=== PATIENT | female | born 1960 | race Two or more races ===

== ENCOUNTER 2018-05-02 16:34 | Inpatient (IN) | payer OTHER, MEDICAID | END 2018-05-05 18:20 | disposition home or self-care (01) | LOC: TELE 05-03 04:11 → ER 16:34 → TELE-WESTW 05-03 21:14 | PROC: 0W9G3ZZ Drainage of Peritoneal Cavity, Percutaneous Approach (ICD-10-PCS; principal; ~2018-05-02) | DX: R18.8 Other ascites (principal); E44.1 Mild protein-calorie malnutrition; K74.60 Unspecified cirrhosis of liver; E11.9 Type 2 diabetes mellitus without complications; I10 Essential (primary) hypertension ==

== ENCOUNTER 2018-06-22 11:12 | Inpatient (IN) | payer OTHER, MEDICAID | END 2018-06-24 14:35 | disposition home or self-care (01) | LOC: ER 11:12 → OVERFLOW 15:23 → CENTRAL 16:50 | DX: R18.8 Other ascites (principal); D61.818 Other pancytopenia; K74.60 Unspecified cirrhosis of liver ==

== ENCOUNTER 2018-08-14 08:37 | Day surgery (SDC) | payer OTHER, MEDICAID ==
[2018-08-10 14:35] LABS: Basophils # (auto) 0 uL; Lymphocytes # (auto) 0.7 uL; Monocytes # (auto) 0.3 uL; Neutrophils # (auto) 1.5 uL; Nucleated Red Blood Cells % 0.1 %; White Blood Cell 2.6 10^3/uL (4.4-10.8)
[2018-08-10 14:37] LABS: Eosinophils # (auto) 0.1 uL; Eosinophils % (auto) 5.3 % (0.0-7.0); Hematocrit 33.8 % (36.0-46.0); Lymphocytes % (auto) 25.3 % (10.0-50.0); Mean Corpuscular Hemoglobin 26.8 pg (28.0-32.0); Mean Corpuscular Hgb Conc. 32.5 g/dL (32.0-36.0); Mean Corpuscular Volume 82.4 fL (80.0-100.0); Monocytes % (auto) 11.7 % (0.0-12.0); Neutrophils % (auto) 56.7 % (37.0-80.0); Platelet Count (auto) 72 10^3/uL (140-450)
[2018-08-10 14:51] LABS: INR 1.17 (0.9-1.15); Partial Thromboplastin Time 27.4 sec (23.64-32.05)
[~2018-08-14] VITALS: Ht 160 cm; Wt 57.6 kg
[~2018-08-14 08:37] MED LIST: FURO1TAB33 PO; INSLANTI SC; INSLISPI SC; SPIR50TA5 PO
[2018-08-14] MEDS ORDERED: diphenhdrAMINE HCL 50 MG/1 ML VL ONE (08:59)
[2018-08-14] MEDS ORDERED: fentaNYL CITRATE 100 MCG/2 ML VL ONE (08:59)
[2018-08-14] MEDS ORDERED: MIDAZOLAM HCL 5 MG/ML-1ML VIAL ONE (08:59)
[2018-08-14] MEDS ORDERED: SODIUM CHLORIDE LOCK 10 ML ONE (08:59)
[2018-08-14] MEDS ORDERED: LIDOCAINE VISCOUS 2% 15ML UD ONE (08:59)
[2018-08-14 10:37] VITALS: BP 129/89
== END 2018-08-14 10:47 | disposition home or self-care (01) ==
LOC: GI 08:37
PROVIDERS: ATTEND Internal Medicine Gastroenterology
DX: I85.00 Esophageal varices without bleeding (principal); K29.60 Other gastritis without bleeding; K76.6 Portal hypertension; K31.89 Other diseases of stomach and duodenum; Z98.890 Other specified postprocedural states
CPT/HCPCS: 36415; 43244; 82962; 85025; 85610; 85730; J1200; J2250; J3010

== ENCOUNTER → 2018-08-25 | Outpatient (CLI) | payer OTHER, MEDICAID ==
[~2018-08-25] MED LIST changes: -FURO1TAB33 PO; +FURO20TA PO
== END | disposition home or self-care (01) ==
LOC: US 11:04
PROVIDERS: ATTEND Internal Medicine Gastroenterology
DX: R18.8 Other ascites (principal); J98.9 Respiratory disorder, unspecified; J44.9 Chronic obstructive pulmonary disease, unspecified; Z85.43 Personal history of malignant neoplasm of ovary; G47.30 Sleep apnea, unspecified; Z90.710 Acquired absence of both cervix and uterus; Z98.890 Other specified postprocedural states; Z87.891 Personal history of nicotine dependence
CPT/HCPCS: 49083; 76700; C1729; 10022; 76942

== ENCOUNTER 2019-01-04 13:57 | Inpatient (IN) | payer OTHER, MEDICAID ==
[~2019-01-04] VITALS: Ht 157.5 cm; Wt 54.4 kg
[~2019-01-04 13:57] MED LIST changes: +FURO1TAB33 PO; -FURO20TA PO
[2019-01-04] MEDS ORDERED: SODIUM CHLORIDE 0.9% 500 ML IVB ONE (14:17)
[2019-01-04] MEDS ORDERED: MORPHINE SULFATE 4 MG/ML SYR/VIAL IV ONE (14:30)
[2019-01-04 15:11] LABS: Basophils # (auto) 0 uL; Eosinophils # (auto) 0.1 uL; Eosinophils % (auto) 1.5 % (0.0-7.0); Hematocrit 37.7 % (36.0-46.0); Hemoglobin 12.3 g/dL (12.2-16.2); Lymphocytes # (auto) 0.5 uL; Lymphocytes % (auto) 14.2 % (10.0-50.0); Mean Corpuscular Hemoglobin 27.3 pg (28.0-32.0); Mean Corpuscular Hgb Conc. 32.5 g/dL (32.0-36.0); Monocytes # (auto) 0.2 uL; Monocytes % (auto) 6.9 % (0.0-12.0); Neutrophils # (auto) 2.7 uL; Neutrophils % (auto) 76.4 % (37.0-80.0); Nucleated Red Blood Cells % 0.1 %; Platelet Count (auto) 78 10^3/uL (140-450); Red Blood Cells 4.49 10^6/uL (4.0-5.20); Red Cell Distribution Width 17.6 % (11.8-14.3); White Blood Cell 3.5 10^3/uL (4.4-10.8)
[2019-01-04 15:24] LABS: Alanine Aminotransferase 44 U/L (13-56); Albumin 3.5 g/dL (3.4-5.0); Anion Gap 6 (5-15); Aspartate Aminotransferase 49 U/L (15-37); Blood Urea Nitrogen 15 mg/dL (7-18); Calcium 8.7 mg/dL (8.5-10.1); Carbon Dioxide 25 mmol/L (21-32); Chloride 105 mmol/L (98-107); GFR African American 95 mL/min; GFR Non-African American 79 mL/min; Glucose 97 mg/dL (74-106); Lipase 220 U/L (73-393); Magnesium 2.3 mg/dL (1.6-2.6); Sodium 136 mmol/L (136-145)
[2019-01-04 15:27] LABS: Alkaline Phosphatase 106 U/L (45-117); Bilirubin, Total 1.4 mg/dL (0.2-1.0); Total Protein 8.5 g/dL (6.4-8.2)
[2019-01-04] MEDS ORDERED: TEMAZEPAM 15 MG CAP PO PRN (17:45)
[2019-01-04] MEDS ORDERED: DEXTROSE (50%) 50ML SYRG IV PRN (17:45)
[2019-01-04] MEDS ORDERED: cefTRIAXone 1GM/50ML D5W 50 ML IV ONE (19:15)
[2019-01-04 20:10] VITALS: BP 103/66
--- NOTE | 2019-01-04 20:10 | NUR ---
[facility] after SBAR received. Patient oriented to GELACIO CARTER RN primary RN, unit, room, bed, and unit policies regarding patient care and visiting hours. Patient placed on bedside oxygen, weighed by bedscale and encouraged to call if they need something. All questions and concerns addressed, patient verbalized understanding.
[2019-01-04 22:00] VITALS: BP 103/66
[2019-01-04] MEDS: INSULIN LANTUS (GLARGINE) 1 /0.01ml (100units/ml) SC SCH (22:00)
[2019-01-04] MEDS: InsuLIN REG 1unit/0.01ml Soln (100units/ml) SC SCH (22:00)
[2019-01-04] MEDS: metroNIDAZOLE 500MG/100ML 100 ML IV SCH (22:14)
[2019-01-04] MEDS: PROMETHAZINE HCL 25 MG/ML 1ML IV PRN (22:14)
[2019-01-04] MEDS: ACCU-CHEK COMFORT CURVE STRIP VI SCH (22:15)
--- NOTE | 2019-01-04 22:16 | NUR ---
Held Mima Patients blood sugar at 98 at this time with very poor appetite. Patient will also be NPO after midnight.
[2019-01-04] MEDS ORDERED: PROP10TA57 PO (22:34)
[2019-01-04] MEDS ORDERED: GABA-339 PO (22:34)
[2019-01-04] MEDS ORDERED: SPIR100T4 PO (22:34)
[2019-01-04] MEDS: MORPHINE SULF INJ 2 MG/ML SYRINGE 1ML IV PRN (23:35)
--- NOTE | 2019-01-05 04:59 | NUR ---
Assisted patient to bathroom and back to bed with moderate assistance. Bed alarm on for safety.
[2019-01-05 05:00] VITALS: BP 97/61
[2019-01-05] MEDS: ACCU-CHEK COMFORT CURVE STRIP VI SCH ×4 (06:08→21:19)
[2019-01-05] MEDS: InsuLIN REG 1unit/0.01ml Soln (100units/ml) SC SCH ×4 (06:08→21:19)
[2019-01-05] MEDS: metroNIDAZOLE 500MG/100ML 100 ML IV SCH ×3 (06:08→21:30)
[2019-01-05] MEDS: MORPHINE SULF INJ 2 MG/ML SYRINGE 1ML IV PRN ×2 (06:10→11:10)
[2019-01-05] MEDS: PROMETHAZINE HCL 25 MG/ML 1ML IV PRN ×3 (06:10→17:37)
--- NOTE | 2019-01-05 07:30 | NUR ---
Opening Shift Note Assumed care of patient, awake and alert. No S/S of distress/SOB or pain. Instructed on POC and to call for assist PRN, will continue to monitor for changes Q1hr and PRN.
--- NOTE | 2019-01-05 07:30 | NUR ---
Endorsed care to day shift RN.
[2019-01-05 08:25] LABS: Basophils # (auto) 0 uL; Basophils % (auto) 1.1 % (0.0-2.0); Eosinophils # (auto) 0 uL; Eosinophils % (auto) 1.6 % (0.0-7.0); Hematocrit 35.8 % (36.0-46.0); Hemoglobin 11.6 g/dL (12.2-16.2); Lymphocytes # (auto) 0.6 uL; Lymphocytes % (auto) 17.6 % (10.0-50.0); Mean Corpuscular Hemoglobin 27.3 pg (28.0-32.0); Mean Corpuscular Hgb Conc. 32.3 g/dL (32.0-36.0); Mean Corpuscular Volume 84.5 fL (80.0-100.0); Monocytes # (auto) 0.3 uL; Monocytes % (auto) 10.8 % (0.0-12.0); Neutrophils # (auto) 2.2 uL; Neutrophils % (auto) 68.9 % (37.0-80.0); Nucleated Red Blood Cells % 0.2 %; Platelet Count (auto) 72 10^3/uL (140-450); Red Blood Cells 4.24 10^6/uL (4.0-5.20); Red Cell Distribution Width 17.3 % (11.8-14.3); White Blood Cell 3.1 10^3/uL (4.4-10.8)
[2019-01-05 08:32] VITALS: BP 96/64
[2019-01-05] MEDS ORDERED: GASTROGRAFIN 120 ML SOL ONE (09:17)
[2019-01-05] MEDS: FUROSEMIDE 20 MG TAB PO SCH (10:00)
[2019-01-05] MEDS: SPIRONOLACTONE 25 MG TAB PO SCH (10:00)
[2019-01-05] MEDS: PANTOPRAZOLE 40 MG TAB PO SCH (10:00)
[2019-01-05 10:42] LABS: Urine Bacteria FEW /hpf (None Seen); Urine Blood Negative /uL (Negative); Urine Mucus FEW (None Seen); Urine WBC 7 /hpf (0 - 5)
[2019-01-05 10:47] LABS: Urine Specific Gravity > 1.050 (1.001-1.035)
[2019-01-05] MEDS: cefTRIAXone 1GM/50ML D5W 50 ML IV SCH (11:09)
--- NOTE | 2019-01-05 11:10 | NUR ---
Schuyler DAVIS AT BEDSIDE.
[2019-01-05 13:00] VITALS: BP 100/65
[2019-01-05] MEDS: D5W/SOD CHLO 0.9% 1,000 ML IV SCH (14:31)
--- NOTE | 2019-01-05 15:35 | NUR ---
1530 01/05/19 I faxed higher level of care transfer order to [facility], [facility], [facility] and [facility] as well as to [facility] I called [facility] and spoke with Estella [phone] to make her aware of the transfer order, she will call me back with authorization numbers.
--- NOTE | 2019-01-05 16:01 | NUR ---
[facility] authorization number for [facility] is [id number], and [facility] authorization number for facility is [id number].
--- NOTE | 2019-01-05 16:04 | NUR ---
I spoke with Ana at the [facility] transfer center [phone], provided her with additional clinical information as requested-provided her with [facility] authorization number.
--- NOTE | 2019-01-05 16:36 | NUR ---
I placed MARTA on will-call (spoke with Terra) with authorization number [id number] relayed this information to patient's primary nurse.
--- NOTE | 2019-01-05 17:37 | NUR ---
melissa alvares at bedside.
--- NOTE | 2019-01-05 20:05 | NUR ---
open note assumed care of pt, upon entering room pt awake and alert. pt oriented x4. pt on room air with no distress noted. pt updated on plan of care. no questions at this time. pt bed locked, low and 2x rails up. call light in reach, encouraged to call as needed. this nurse will round q1hr and prn.
[2019-01-05 22:00] VITALS: BP 114/72
[2019-01-05] MEDS: INSULIN LANTUS (GLARGINE) 1 /0.01ml (100units/ml) SC SCH (22:50)
[2019-01-06 05:06] VITALS: BP 98/71
[2019-01-06 05:52] LABS: Basophils # (auto) 0 uL; Basophils % (auto) 1.1 % (0.0-2.0); Eosinophils # (auto) 0.1 uL; Eosinophils % (auto) 2.8 % (0.0-7.0); Hematocrit 31.9 % (36.0-46.0); Hemoglobin 10.7 g/dL (12.2-16.2); Lymphocytes # (auto) 0.7 uL; Lymphocytes % (auto) 24.7 % (10.0-50.0); Mean Corpuscular Hemoglobin 27.8 pg (28.0-32.0); Mean Corpuscular Hgb Conc. 33.4 g/dL (32.0-36.0); Mean Corpuscular Volume 83.4 fL (80.0-100.0); Monocytes # (auto) 0.5 uL; Neutrophils # (auto) 1.6 uL; Neutrophils % (auto) 55.4 % (37.0-80.0); Nucleated Red Blood Cells % 0.1 %; Platelet Count (auto) 67 10^3/uL (140-450); Red Blood Cells 3.83 10^6/uL (4.0-5.20); Red Cell Distribution Width 17.5 % (11.8-14.3); White Blood Cell 2.9 10^3/uL (4.4-10.8)
[2019-01-06 06:11] LABS: Calcium 8.1 mg/dL (8.5-10.1); Potassium 3.5 mmol/L (3.5-5.1)
[2019-01-06 06:15] LABS: Albumin 2.8 g/dL (3.4-5.0); BUN/Creatinine Ratio 21.5; Magnesium 2.2 mg/dL (1.6-2.6)
[2019-01-06 06:17] LABS: Bilirubin, Total 1.1 mg/dL (0.2-1.0); Total Protein 6.7 g/dL (6.4-8.2)
[2019-01-06] MEDS: D5W/SOD CHLO 0.9% 1,000 ML IV SCH (06:21)
[2019-01-06] MEDS: metroNIDAZOLE 500MG/100ML 100 ML IV SCH ×3 (06:21→21:57)
[2019-01-06] MEDS: ACCU-CHEK COMFORT CURVE STRIP VI SCH ×4 (06:21→21:59)
[2019-01-06] MEDS: InsuLIN REG 1unit/0.01ml Soln (100units/ml) SC SCH ×4 (06:21→21:58)
--- NOTE | 2019-01-06 07:30 | NUR ---
Opening Shift Note Assumed care of patient, awake and alert X4. No S/S of distress/SOB or pain. Instructed on POC and to call for assist PRN. Abdominal binder in place. instructed to call for assistance. Patient reports having a BM today. will continue to monitor for changes Q1hr and PRN.
[2019-01-06 09:00] VITALS: BP 106/67
[2019-01-06] MEDS: cefTRIAXone 1GM/50ML D5W 50 ML IV SCH (09:12)
[2019-01-06] MEDS: MORPHINE SULF INJ 2 MG/ML SYRINGE 1ML IV PRN ×2 (09:12→14:49)
[2019-01-06] MEDS: SPIRONOLACTONE 25 MG TAB PO SCH (09:17)
[2019-01-06] MEDS: FUROSEMIDE 20 MG TAB PO SCH (09:17)
[2019-01-06] MEDS: PANTOPRAZOLE 40 MG TAB PO SCH (09:18)
--- NOTE | 2019-01-06 11:17 | NUR ---
CALLED [facility]. SPOKE TO SAVANNA. STATED KIMBER WILL BE WORKING ON THE CASE AND IS BUSY ON THE OTHER LINE. LEFT PHONE NUMBER AND EXTENSION. WILL WAIT FOR CALL BACK.
[2019-01-06 12:30] VITALS: BP 100/63
--- NOTE | 2019-01-06 13:15 | NUR ---
PATIENT TOLERATED MEAL WELL. NO NAUSEA AT THIS TIME.
[2019-01-06 16:55] VITALS: BP 96/61
--- NOTE | 2019-01-06 19:20 | NUR ---
OPENING SHIFT NOTE Assumed care of patient who is resting in bed with eyes closed. Respirations are even and non-labored. Easily arouses to name. A&O x4, currently on RA with no s/s of SOB or distress. reports 8/10 abdominal pain, however declines pain medication at this time. Abdominal binder is in place. Patient is able to ambulate independently, which is her baseline. POC discussed with patient who verbalizes understanding. Bed is in low locked position with side rails up x2. Call light is within reach and patient is encouraged to call for assistance when needed. Will continue to monitor for changes PRN.
[2019-01-06] MEDS: INSULIN LANTUS (GLARGINE) 1 /0.01ml (100units/ml) SC SCH (21:58)
[2019-01-06 22:00] VITALS: BP 99/59
--- NOTE | 2019-01-06 22:04 | NUR ---
BG checked and is 62. Patient given 4oz juice.
--- NOTE | 2019-01-06 22:45 | NUR ---
BG reassessed and is 105. Will continue to monitor.
[2019-01-07 04:42] VITALS: BP 90/57
[2019-01-07] MEDS: metroNIDAZOLE 500MG/100ML 100 ML IV SCH ×2 (05:41→14:00)
[2019-01-07] MEDS: ACCU-CHEK COMFORT CURVE STRIP VI SCH (06:02)
[2019-01-07] MEDS: InsuLIN REG 1unit/0.01ml Soln (100units/ml) SC SCH (06:02)
[2019-01-07 08:00] VITALS: BP 99/56
--- NOTE | 2019-01-07 08:30 | NUR ---
INITIAL ASSESSMENT FINDS AWAKE ALERT BRIGHT DENIES PAIN. TOLERATES FULL LIQUID DIET. HAS ABDOMINAL BINDER IN PLACE. BOWEL SOUNDS PRESENT.
[2019-01-07] MEDS: SPIRONOLACTONE 25 MG TAB PO SCH (10:38)
[2019-01-07] MEDS: FUROSEMIDE 20 MG TAB PO SCH (10:40)
[2019-01-07] MEDS: PANTOPRAZOLE 40 MG TAB PO SCH (10:40)
[2019-01-07] MEDS: cefTRIAXone 1GM/50ML D5W 50 ML IV SCH (10:49)
[2019-01-07 12:30] VITALS: BP 102/67
--- NOTE | 2019-01-07 12:30 | NUR ---
ASSISTED WITH LOOSENING ABDOMINAL BINDER FOR COMFORT.
--- NOTE | 2019-01-07 15:00 | NUR ---
ATTEMPTED TO CONTACT CRIS PERERA BY PHONE BY REQUEST OF PT TO MAKE ARRANGEMENTS TO [facility] [employer] PT. NO ANSWER MESSAGE LEFT.
--- NOTE | 2019-01-07 16:31 | NUR ---
DC INSTRUCTIONS PROVIDED AND REVIEWED WITH PT. STRESSED IMPORTANCE OF F/U FOR TESTING. IV DC'D CANNULA INTACT. DRESSES INTO CLOTHING. DAUGHTER TREVER ARRIVED TO [facility]. TO PRIVATE VEHICLE VIA WC BY NAI.
[2019-01-07 17:00] VITALS: BP 101/68
== END 2019-01-07 16:30 | disposition short-term general hospital (02) | DRG 389 ==
LOC: ER 13:57 → OVERFLOW 13:58 → CENTRAL 20:06
PROVIDERS: ADMIT Internal Medicine; ATTEND Internal Medicine
DX: K56.609 Unspecified intestinal obstruction, unspecified as to partial versus complete obstruction (principal); I85.10 Secondary esophageal varices without bleeding; K76.6 Portal hypertension; D69.6 Thrombocytopenia, unspecified; K42.9 Umbilical hernia without obstruction or gangrene; D72.819 Decreased white blood cell count, unspecified; E11.9 Type 2 diabetes mellitus without complications; I25.2 Old myocardial infarction; J45.909 Unspecified asthma, uncomplicated; I10 Essential (primary) hypertension; I86.8 Varicose veins of other specified sites; Z85.43 Personal history of malignant neoplasm of ovary; G31.89 Other specified degenerative diseases of nervous system; Z90.49 Acquired absence of other specified parts of digestive tract; Z90.710 Acquired absence of both cervix and uterus; Z83.3 Family history of diabetes mellitus; B19.20 Unspecified viral hepatitis C without hepatic coma; Z79.4 Long term (current) use of insulin; M19.90 Unspecified osteoarthritis, unspecified site; K70.30 Alcoholic cirrhosis of liver without ascites
CPT/HCPCS: 36415; 74018; 74176; 74177; 74250; 80053; 81001; 82105; 82140; 82150; 82962; 83036; 83690; 83735; 85025; 85652; 94761; 96361; 96374; G0378; J0696; J1815; J3490; J7042

== ENCOUNTER → 2019-02-09 | Day surgery (SDC) | payer OTHER, MEDICAID ==
[2019-02-07 10:32] LABS: Basophils # (auto) 0 uL; Eosinophils # (auto) 0.1 uL; Eosinophils % (auto) 2.1 % (0.0-7.0); Hematocrit 38.1 % (36.0-46.0); Hemoglobin 12.3 g/dL (12.2-16.2); Lymphocytes # (auto) 0.5 uL; Lymphocytes % (auto) 12.8 % (10.0-50.0); Mean Corpuscular Hemoglobin 27.8 pg (28.0-32.0); Mean Corpuscular Hgb Conc. 32.2 g/dL (32.0-36.0); Mean Corpuscular Volume 86.3 fL (80.0-100.0); Monocytes # (auto) 0.4 uL; Monocytes % (auto) 9.4 % (0.0-12.0); Neutrophils # (auto) 2.8 uL; Neutrophils % (auto) 74.7 % (37.0-80.0); Platelet Count (auto) 83 10^3/uL (140-450); Red Blood Cells 4.42 10^6/uL (4.0-5.20); Red Cell Distribution Width 17.8 % (11.8-14.3); White Blood Cell 3.8 10^3/uL (4.4-10.8)
[2019-02-07 10:48] LABS: INR 1.13 (0.9-1.15); Partial Thromboplastin Time 25.4 sec (23.64-32.05)
[~2019-02-09] VITALS: Ht 160 cm; Wt 45.4 kg
[~2019-02-09] MED LIST changes: +GABA-339 PO; +PROP10TA57 PO; +SPIR100T4 PO; -SPIR50TA5 PO
[2019-02-09 11:39] VITALS: BP 118/71
== END | disposition home or self-care (01) ==
LOC: GI 09:20
PROVIDERS: ATTEND Internal Medicine Gastroenterology
DX: K70.31 Alcoholic cirrhosis of liver with ascites (principal); I85.10 Secondary esophageal varices without bleeding; K76.6 Portal hypertension; K31.89 Other diseases of stomach and duodenum; D64.9 Anemia, unspecified; J44.9 Chronic obstructive pulmonary disease, unspecified; I25.2 Old myocardial infarction; Z79.899 Other long term (current) drug therapy; K44.9 Diaphragmatic hernia without obstruction or gangrene; Z90.710 Acquired absence of both cervix and uterus; Z98.891 History of uterine scar from previous surgery; Z85.43 Personal history of malignant neoplasm of ovary; Z87.891 Personal history of nicotine dependence; Z72.89 Other problems related to lifestyle
CPT/HCPCS: 36415; 43244; 82962; 85025; 85610; 85730; J7030